=== PATIENT | male | born 1980 | race Two or more races ===

== ENCOUNTER 2021-02-15 04:15 | Emergency (ER) | payer MEDICARE, OTHER ==
[~2021-02-15] VITALS: Ht 177.8 cm; Wt 97.5 kg
--- NOTE | 2021-02-15 04:25 | NUR ---
YARIEL Driscoll FROM [facility] [place] FOR C/O LOWER BACK PAIN.REC'D SAJI AND SANDRA AT THE FACILITY. PT A/OX4. TOELRATING R/A WELL. PT CONNECTED TO POX AND TELE MONITOR.
--- NOTE | 2021-02-15 04:36 | NUR ---
URINE SPECIMEN COLLECTED AND SENT TO LAB.
[2021-02-15] MEDS ORDERED: ONDANSETRON HCL/PF 4 MG/2 ML VIAL ONE (04:42)
[2021-02-15] MEDS ORDERED: HYDROMORPHONE 1 MG/1 ML DISP.SYRIN ONE ×3 (04:42→07:12)
[2021-02-15 04:45] LABS: BILIRUBIN,URINE Negative (NEGATIVE); COLOR,URINE YELLOW (YELLOW); LEUKOCYTE ESTERASE ,URINE Negative (NEGATIVE); NITRITE, URINE Negative (NEGATIVE); PROTEIN,URINE Negative (NEGATIVE); UGLUCOSE Negative (NEGATIVE); UROBILINOGEN,URINE 0.2 EU/dL (0.2)
[2021-02-15 04:45] LABS: BASOPHILS # (AUTO) 0.3 K/uL (0.0-0.2); BASOPHILS % (AUTO) 1.7 % (0.0-2.0); EOSINOPHILS % (AUTO) 1.1 % (0.0-6.0); HEMATOCRIT 47 % (39-51); HEMOGLOBIN 15.2 g/dL (13.5-17.5); LYMPHOCYTES # (AUTO) 3.6 K/uL (0.8-4.8); LYMPHOCYTES % (AUTO) 20.5 % (20.0-44.0); MEAN CORPUSCULAR HGB CONC 33 g/dl (31.0-36.0); MEAN CORPUSCULAR VOLUME 91 fL (80-96); MONOCYTES # (AUTO) 1.3 K/uL (0.1-1.30); MONOCYTES % (AUTO) 7.2 % (2.0-12.0); NEUTROPHILS # (AUTO) 12.4 K/uL (1.8-8.9); NEUTROPHILS % (AUTO) 69.5 % (43.0-81.0); PLATELET COUNT (AUTO) 329 K/uL (150-450); RED BLOOD CELL COUNT(AUTO) 5.12 MIL/uL (4.5-6.0); WHITE BLOOD COUNT (AUTO) 17.8 K/uL (4.3-11.0)
[2021-02-15 04:54] LABS: CALCIUM, SERUM 9.1 mg/dL (8.5-10.1); CARBON DIOXIDE 33 mmol/L (21-32); CHLORIDE 104 mmol/L (98-107); GLUCOSE 91 mg/dL (74-106); POTASSIUM 4.1 mmol/L (3.5-5.1); SODIUM SERUM 143 mmol/L (136-145); UREA NITROGEN, BLOOD 17 mg/dL (7-18)
[2021-02-15 04:59] LABS: ALANINE AMINOTRANSFERASE 83 U/L (12-78); ALBUMIN 3.6 g/dL (3.4-5.0); ALCOHOL, BLOOD < 3 mg/dL (0-0); ALKALINE PHOSPHATASE 78 U/L (46-116); ASPARTATE AMINOTRANSFERASE 25 U/L (15-37); BILIRUBIN,TOTAL 0.1 mg/dL (0.2-1.0); TOTAL PROTEIN, SERUM 7.3 g/dL (6.4-8.2)
[2021-02-15 05:00] LABS: ACETAMINOPHEN 0 ug/ml (10-30)
[2021-02-15] MEDS ORDERED: ONDANSETRON HCL/PF 4 MG/2 ML VIAL IV ONE (05:00)
[2021-02-15] MEDS ORDERED: HYDROMORPHONE 1 MG/1 ML DISP.SYRIN IV ONE ×3 (05:00→07:30)
--- NOTE | 2021-02-15 05:34 | NUR ---
COVID SWAB VIA OPERATIONS VICE PRESIDENT COLLECTED AND SENT TO LAB
[2021-02-15 05:39] LABS: BASOPHILS % (MANUAL) 0 % (0.0-2.0); EOSINOPHILS % (MANUAL) 1 % (0-4); LYMPHOCYTES % (MANUAL) 20 % (16-48); MONOCYTES % (MANUAL) 10 % (0-11.0); NEUTROPHILS % (MANUAL) 69 (42-76)
--- NOTE | 2021-02-15 06:31 | NUR ---
FACE SHEET AND CLINICALS FAXED TO [facility]
--- NOTE | 2021-02-15 06:47 | NUR ---
CALLED [facility] AND VERIFIED RECEIVING THE FAX
[2021-02-15] MEDS ORDERED: LIDOCAINE 5% (PATCH) 1 EA PATCH TP SCH (07:30)
[2021-02-15 08:00] VITALS: BP 109/65
--- NOTE | 2021-02-15 08:00 | NUR ---
THE PATIENT IS RECEIVED IN ER BED #12. THE PATIENT IS ALERT AND ORIENTED X4. RESPIRATION REGUALR AND UNLABORED. WILL CONTINUE TO MONITOR THE PATIENT.
--- NOTE | 2021-02-15 08:05 | NUR ---
[facility] TRANSPORT TO [facility] ETA 0900.
--- NOTE | 2021-02-15 09:09 | NUR ---
REPORT GIVEN TO CRISTOPHER AT [facility]. AWAITING TRANSPORT.
--- NOTE | 2021-02-15 09:34 | NUR ---
SENT BACK TO [facility] IN STABLE CONDITION.
== END 2021-02-15 09:37 ==
LOC: ER 04:17
DX: M54.41 Lumbago with sciatica, right side (principal); G89.29 Other chronic pain; R45.851 Suicidal ideations; D72.829 Elevated white blood cell count, unspecified; J44.9 Chronic obstructive pulmonary disease, unspecified; M51.24 Other intervertebral disc displacement, thoracic region; F43.10 Post-traumatic stress disorder, unspecified; Z88.6 Allergy status to analgesic agent; Z88.1 Allergy status to other antibiotic agents; Z88.8 Allergy status to other drugs, medicaments and biological substances; Z20.822 Contact with and (suspected) exposure to COVID-19
CPT/HCPCS: 36415; 80048; 80076; 80143; 80307; 80320; 81003; 85007; 85025; 87426; 96374; 96375; 96376; 99285; A6403; J1170 ×3; J2405; C9803; G0480

== ENCOUNTER 2021-02-18 14:27 | Emergency (ER) | payer MEDICARE, OTHER ==
[~2021-02-18] VITALS: Ht 177.8 cm; Wt 95.3 kg
[2021-02-18 14:30] VITALS: BP 151/96
[2021-02-18] MEDS ORDERED: ACETAMINOPHEN ES 500 MG TABLET PO ONE (15:00)
--- NOTE | 2021-02-18 15:02 | NUR ---
Patient discharged to home in stable condition. Written and verbal after care instructions given. Patient verbalizes understanding of instruction.
== END 2021-02-18 15:02 | disposition home or self-care (01) ==
LOC: ER 14:34
DX: M54.41 Lumbago with sciatica, right side (principal); G89.29 Other chronic pain; J44.9 Chronic obstructive pulmonary disease, unspecified; F43.10 Post-traumatic stress disorder, unspecified; F17.200 Nicotine dependence, unspecified, uncomplicated; Z88.8 Allergy status to other drugs, medicaments and biological substances; Z88.6 Allergy status to analgesic agent; Z88.5 Allergy status to narcotic agent; Z88.1 Allergy status to other antibiotic agents